=== PATIENT | male | born 1970 ===

== ENCOUNTER 2017-06-27 13:22 | Inpatient (IN) | payer MEDICAID, OTHER ==
--- NOTE | 2017-06-27 13:55 | ED PDOC ---
Arrival/HPI - General Chief Complaint: Alcohol Ingestion Time Seen by Provider: 06/27/17 13:30 Historian: Patient - History of Present Illness Narrative History of Present Illness (Text): 06/27/17 1359 pt p/w + severe jitteriness/palpitations/uneasy feeling, general unwell feeling today; pt last drink of alcohol was 6pm last night; pt is trying to stop drinking alcohol on his own; pt was drinking daily at least 6-8 of 24Oz beers; pt states no fever/chills/sweats, no cp/sob, no abd pain, + nausea, no vomiting ; no urinary/bowel changes, no rashes, no vision changes, + throbbing headache; no fall/trauma/sick contact, no travel; pt states no suicidal/homicidal ideations; pt denied hallucinations - visual/tactile/auditory; pt arrived to ED for further eval/mgt/txt; pt's without other complaints PCP: NONE Time/Duration: 24 hours Symptom Onset: Sudden Symptom Course: Worsening Quality: Throbbing Severity Level: Severe Activities at Onset: Rest Context: Home Past Medical History - Provider Review Nursing Documentation Reviewed: Yes - Travel History Have you recently traveled outside [place] w/in the past 3 mons?: No - Past History Past History: No Previous - Infectious Disease Hx of Infectious Diseases: None - Tetanus Immunization Tetanus Immunization: Unknown - Reproductive Currently Lactating: No Family/Social History - Physician Review Nursing Documentation Reviewed: Yes Family/Social History: No Known Family HX Smoking Status: Never Smoked Hx Alcohol Use: Yes (heavy user, drinks 6-8 24oz beer daily for years) Hx Substance Use: No Hx Substance Use Treatment: No Allergies/Home Meds Allergies/Adverse Reactions: Allergies No Known Allergies Allergy (Verified 06/27/17 13:54) Home Medications: Home Meds Medication Instructions Recorded Confirmed No Known Home Med 06/27/17 06/27/17 Review of Systems - Review of Systems Constitutional: Fatigue. absent: Weight Change Eyes: Normal ENT: Normal Respiratory: Normal Cardiovascular: Palpitations Gastrointestinal: Normal Genitourinary Male: Normal Musculoskeletal: Normal Skin: Normal Neurological: Headache, Dizziness Endocrine: Normal Hemo/Lymphatic: Normal Psychiatric: Anxiety. absent: Suicidal Ideation Physical Exam Vital Signs Reviewed: Yes Vital Signs Temp Pulse Resp BP Pulse Ox 06/27/17 15:29 78 18 126/85 95 06/27/17 13:42 98.2 F 91 H 22 157/101 H 100 Temperature: Afebrile Blood Pressure: Hypertensive Pulse: Regular Respiratory Rate: Normal Appearance: Positive for: Well-Appearing, Uncomfortable, Other (uncomfortable, noted resting tremors, mild distress due to jitters; alert/awake, cooperative, resting in bed; GCS = 15, oriented x 3) Pain Distress: Mild Mental Status: Positive for: Alert and Oriented X 3 - Systems Exam Head: Present: Atraumatic, Normocephalic Pupils: Present: PERRL, Other (no nystagmus, no photophobia, sclera anicteric) Extroacular Muscles: Present: EOMI Conjunctiva: Present: Normal Ears: Present: Normal Mouth: Present: Dry, Normal Teeth, Other (uvula/tongue are midline, no exudate/ lesions, no drooling, moderate dry oral mucosa) Pharnyx: Present: Normal Nose (External): Present: Atraumatic Nose (Internal): Present: Normal Inspection Neck: Present: Normal Range of Motion, Trachea Midline, Other (no midline tenderness, no step off, intact ROM; no gross deformities noted). No: MIDLINE TENDERNESS Respiratory/Chest: Present: Clear to Auscultation, Good Air Exchange, Other ( CTA b/l, no w/r/r) Cardiovascular: Present: Regular Rate and Rhythm, Normal S1, S2. No: Murmurs Abdomen: Present: Normal Bowel Sounds, Other (well nourished male, no focal tenderness, no masses/rebound/guarding/rigidity, no michel's sign, no mcburney' s point tenderness) Back: Present: Normal Inspection. No: CVA Tenderness, Midline Tenderness Upper Extremity: Present: Normal Inspection, Normal ROM, NORMAL PULSES, Neurovascularly Intact. No: Edema, Deformity Lower Extremity: Present: Normal Inspection, NORMAL PULSES, Normal ROM, Neurovascularly Intact, Other (+ambulatory, neurovasc intact b/l, strength 5/5 grossly intact in all limbs) Neurological: Present: GCS=15, CN II-XII Intact, Speech Normal, Other (+ mild resting tremors noted, alert/awake, GCS = 15, no facial asymmetries, no slurr speech) Skin: Present: Warm, Dry, Normal Color, Other (cap refill ~ 1sec, no ulcerations , no petechiae) Psychiatric: Present: Alert, Oriented x 3. No: Hallucinations Medical Decision Making ED Course and Treatment: 06/27/17 13:59 Impression: alcohol w/d i have consider all the differential diagnosis regarding pt's chief medical complaints/clinical findings, including but are not limited to: alcohol w/d, palpitations A/P: alcohol w/d - labs - iv - xray - ekg - observe - supportive care 06/27/17 14:[address] Davis, hospitalists deputy commissioner, made aware, agrees with admission pt is currently feeling slightly improved pt is made aware of his medical results agrees with admission 1600 pt denied chest pain pt is currently comfortable and calm pt denied SI/HI, no hallucinations Re-evaluation Time: 15:22 Reassessment Condition: Improving,but remains with symptoms - Critical Care Critical Care Minutes: 30 minutes Critical Care Time: Excluding Proc Time Narrative Critical Care (Text): 06/27/17 17:03 critical care time: 30min, excluding procedure time, excluding time teaching residents/students/mid-level providers; including initial eval/diagnosis, diagnostic interpretation, re-eval, consultations, final disposition - Lab Interpretations Lab Results: 06/27/17 14:04 06/27/17 14:04 Lab Results 06/27/17 14:09: pO2 69 H, VBG pH 7.41, VBG pCO2 39.0 L, VBG HCO3 24.7, VBG Total CO2 25.9, VBG O2 Sat (Calc) 96.2 H, VBG Base Excess 0.1, VBG Potassium 3.4 L, Glucose 297 H, Lactate 3.1 H, FiO2 21.0, Sodium 134.0, Chloride 98.0, Venous Blood Potassium 3.4 L 06/27/17 14:04: Serum Osmolality Pending, Alcohol, Quantitative < 10 06/27/17 14:04: Salicylates < 1 L, Acetaminophen < 10.0 L 06/27/17 14:04: Urine Opiates Screen Negative, Urine Methadone Screen Negative, Ur Barbiturates Screen Negative, Ur Phencyclidine Scrn Negative, Ur Amphetamines Screen Negative, U Benzodiazepines Scrn Negative, U Oth Cocaine Metabols Negative, U Cannabinoids Screen Negative 06/27/17 14:04: Sodium 138, Potassium 3.5 L, Chloride 94 L, Carbon Dioxide 22, Anion Gap 25 H, BUN 10, Creatinine 0.5 L, Est GFR ( Amer) > 60, Est GFR ( Non-Af Amer) > 60, Random Glucose 299 H, Calcium 10.6 H, Total Bilirubin 1.5 H, AST 116 H, ALT 117 H, Alkaline Phosphatase 168 H, Total Protein 8.4 H, Albumin 5.0 H, Globulin 3.4, Albumin/Globulin Ratio 1.5 06/27/17 14:04: Urine Color Yellow, Urine Appearance Clear, Urine pH 6.0, Ur Specific [place] 1.020, Urine Protein Trace H, Urine Glucose (UA) Negative, Urine Ketones >=80, Urine Blood Negative, Urine Nitrate Negative, Urine Bilirubin Negative, Urine Urobilinogen 1.0 H, Ur Leukocyte Esterase Negative, Urine RBC 0 - 2, Urine WBC 0 - 2, Ur Epithelial Cells 1 - 3, Urine Bacteria Few 06/27/17 14:04: WBC 4.4 L, RBC 4.72, Hgb 16.0, Hct 43.0, MCV 91.1, MCH 33.9, MCHC 37.2 H, RDW 11.7, Plt Count 96 L, MPV 12.3 H, Gran % 72.1 H, Lymph % (Auto ) 16.2 L, [place] % (Auto) 11.0 H, Eos % (Auto) 0.2 L, Baso % (Auto) 0.5, Gran # 3.20, Lymph # (Auto) 0.7 L, [place] # (Auto) 0.5, Eos # (Auto) 0.0, Baso # (Auto) 0.02 06/27/17 13:50: POC Glucose (mg/dL) 250 H I have reviewed the lab results: Yes Interpretation: Abnormal lab values (elevated LFTs, elevated GLUC, elevated LACTATE) - RAD Interpretation Narrative RAD Interpretations (Text): 06/27/17 14:39 Chest X-ray- Creator : Pipo Burnette MD Dictator : Pipo Burnette MD FINDINGS: LUNGS: No active pulmonary disease. PLEURA: No significant pleural effusion identified, no pneumothorax apparent. CARDIOVASCULAR: Normal. OSSEOUS STRUCTURES: No significant abnormalities. VISUALIZED UPPER ABDOMEN: Normal. IMPRESSION: No active disease. Radiology Orders: 06/27/17 13:57 CHEST PORTABLE [RAD] Stat Sampler Radioactive Waste: Radiologist - EKG Interpretation EKG Interpretation (Text): 06/27/17 14:00 NSR at 80 bpm, LAD, no ectopy, inverted T in leads III, no st changes, min voltage criteria LVH, ABNL EKG; no old ekg to compare with Interpreted by ED Physician: Yes Type: 12 lead EKG Comparison: No previous EKG avail. - Medication Orders Current Medication Orders: Multivitamins/Vitamin C 10 ml/Thiamine HCl 100 mg/ Folic Acid 1 mg/ Sodium Chloride 1,011.2 mls @ 100 mls/hr IV ONCE ONE Stop: 06/28/17 00:03 Last Admin: 06/27/17 15:24 Dose: 100 mls/hr eMAR Start Stop Document 06/27/17 15:24 OCS (Rec: 06/27/17 15:25 OCS [id number]) Intravenous Solution Start Date 06/27/17 Start Time 15:25 Multivitamins/Vitamin C 10 ml/Thiamine HCl 100 mg/ Folic Acid 1 mg/ Sodium Chloride 1,011.2 mls @ 150 mls/hr IV .Q6H45M ONE Stop: 06/28/17 06:48 Insulin Human Regular (Humulin R Low) 0 units SC ACHS SHIVANI PRN Reason: Protocol Lorazepam (Ativan) 1 mg IVP Q6H SHIVANI PRN Reason: Protocol Last Admin: 06/27/17 15:44 Dose: 1 mg IVP Administration Document 06/27/17 15:44 OCS (Rec: 06/27/17 15:44 OCS [id number]) Charges for Administration # of IVP Administrations 1 Lorazepam (Ativan) 2 mg IVP Q4H PRN; Protocol PRN Reason: Symptoms of alcohol withdrawl Pantoprazole Sodium (Protonix Ec Tab) 40 mg PO 0600 SHIVANI Discontinued Medications Lorazepam (Ativan) 2 mg IVP STAT STA Stop: 06/27/17 13:58 Last Admin: 06/27/17 14:11 Dose: 2 mg IVP Administration Document 06/27/17 14:11 OCS (Rec: 06/27/17 14:11 OCS [id number]) Charges for Administration # of IVP Administrations 1 Disposition/Present on Arrival - Present on Arrival Any Indicators Present on Arrival: No History of DVT/PE: No History of Uncontrolled Diabetes: No Urinary Catheter: No History of Decub. Ulcer: No History Surgical Site Infection Following: None - Disposition Have Diagnosis and Disposition been Completed?: Yes Diagnosis: Alcohol withdrawal, Alcohol dependence, Dehydration Disposition: HOSPITALIZED Disposition Time: 15:22 Patient Plan: Admission, Telemetry Patient Problems: Current Active Problems Problem Status Onset Alcohol withdrawal Acute Alcohol dependence Acute Dehydration Acute Condition: STABLE
[2017-06-27] MEDS ORDERED: Multivitamin (MVI) 10 ML, Thiamine 100 MG, Folic Acid 1 MG in Sodium Chloride 0.9% 1,00... IV ONE (13:57)
[2017-06-27 14:20] LABS: BASO # 0.02 K/mm3 (0.0-2.0); BASO % 0.5 % (0.0-3.0); EOS % 0.2 % (1.5-5.0); GRAN # 3.2 (1.4-6.5); GRAN % 72.1 % (50.0-68.0); LYMPH # 0.7 (1.2-3.4); LYMPH % 16.2 % (22.0-35.0); MEAN CELL VOLUME 91.1 fl (80.0-105.0); MEAN CORPUSCULAR HEMOGLOBIN 33.9 pg (25.0-35.0); MEAN CORPUSCULAR HGB CONC 37.2 g/dl (31.0-37.0); MEAN PLATELET VOLUME 12.3 fl (7.0-11.0); MONO # 0.5 (0.1-0.6); RBC 4.72 10^6/uL (3.5-6.1); RED CELL DISTRIBUTION WIDTH 11.7 % (11.5-14.5); WHITE BLOOD COUNT 4.4 10^3/ul (4.5-11.0)
[2017-06-27 14:21] LABS: URINE BILIRUBIN NEGATIVE (NEGATIVE); URINE BLOOD NEGATIVE (NEGATIVE); URINE GLUCOSE (UA) NEGATIVE (NEGATIVE); URINE LEUKOCYTE ESTERASE NEGATIVE Leu/uL (NEGATIVE); URINE PROTEIN TRACE mg/dL (<30 mg/dL)
[2017-06-27 14:23] LABS: URINE APPEARANCE CLEAR (CLEAR); URINE COLOR YELLOW (YELLOW)
[2017-06-27 14:24] LABS: VENOUS BLOOD GAS BASE EXCESS 0.1 mmol/L (0.0-2.0); VENOUS BLOOD GAS PO2 69 mm/Hg (30-55); VENOUS BLOOD PH 7.41 (7.32-7.43)
[2017-06-27 14:27] LABS: URINE RBC 0 - 2 /hpf (0-2)
[2017-06-27 14:28] LABS: URINE BACTERIA FEW (NEG); URINE WBC 0 - 2 /hpf (0-6)
[2017-06-27 14:34] LABS: ACETAMINOPHEN < 10.0 ug/ml (10.0-20.0); ALB/GLOB RATIO 1.5 (1.1-1.8); ALT/SGPT 117 U/L (7-56); AST/SGOT 116 U/L (17-59); BLOOD UREA NITROGEN 10 mg/dL (7-21); CALCIUM 10.6 mg/dL (8.4-10.5); GFR AFRICAN-AMERICAN > 60; GFR NON-AFRICAN AMERICAN > 60; SALICYLATE < 1 mg/dL (2.0-20.0)
--- NOTE | 2017-06-27 14:37 | RAD ---
HISTORY: alcohol w/d COMPARISON: No prior. FINDINGS: LUNGS: No active pulmonary disease. PLEURA: No significant pleural effusion identified, no pneumothorax apparent. CARDIOVASCULAR: Normal. OSSEOUS STRUCTURES: No significant abnormalities. VISUALIZED UPPER ABDOMEN: Normal. OTHER FINDINGS: None. IMPRESSION: No active disease.
[2017-06-27 14:43] LABS: BARBITURATES, UR NEGATIVE (NEGATIVE); BENZODIAZEPINES, UR NEGATIVE (NEGATIVE); OPIATES, UR NEGATIVE (NEGATIVE); PHENCYCLIDINE, UR NEGATIVE (NEGATIVE)
--- NOTE | 2017-06-27 15:17 | CP.PCM.HP ---
<Parul Castano - Last Filed: 06/27/17 16:03> History of Present Illness - History of Present Illness History of Present Illness: CC: I was shaking and my heart was beating funny Patient is a 47 y/o with pmh of anxiety and depression who presented with tachycardia, and feeling shaky. Patient states he has been drinking for 8 months to a year straight, last drink was yesterday at 6 pm, he consumed 8 x 24 oz can of beer. Patient didn't have any alcohol beverage today due to the fact that he has an interview this morning. While at the interview, he started to experience funny sensation in the chest, heart was beating fast, then slow, he felt shaky, was not able to hold the pen, and felt sweaty, thus he decided to come to the ED. States he walked into the ED by himself. Denies nausea, vomiting or diarrhea. No cp or sob. No fever, chills, no cough. Aniceto dysurea, and no abdominal pain. Patient states he was diagnosed with anxiety, was taking Xanax prescribed Dr Dr Miranda 4 years ago, discontinued it due to lack of money. Currently unemployed. PMHx: Alcohol dependency, anxiety and depression PSHx: denies FMHx: brother and sister with htn and DM Social: denies tobacco or illicit drug use. Admits to drinking 4x24 oz of beer everyday for the past 8 months to a year. Used to drink alcohol intermittently before that, tried to quit once, and was sober for 6 months. Lives with his brother. Allergy: nkda Home meds: none Present on Admission - Present on Admission Any Indicators Present on Admission: No History of DVT/PE: No History of Uncontrolled Diabetes: No Urinary Catheter: No Decubitus Ulcer Present: No Review of Systems - Review of Systems All systems: reviewed and no additional remarkable complaints except Review of Systems: All negative except as per HPI. Past Patient History - Infectious Disease Hx of Infectious Diseases: None - Tetanus Immunizations Tetanus Immunization: Unknown - Past Medical History & Family History Past Medical History?: Yes - Past Social History Smoking Status: Never Smoked Alcohol: None Drugs: Denies Home Situation {Lives}: With Family - CARDIAC Hx Cardiac Disorders: No - PULMONARY Hx Respiratory Disorders: No - NEUROLOGICAL Hx Neurological Disorder: No - HEENT Hx HEENT Problems: No - RENAL Hx Chronic Kidney Disease: No - ENDOCRINE/METABOLIC Hx Endocrine Disorders: No - HEMATOLOGICAL/ONCOLOGICAL Hx Blood Disorders: No - INTEGUMENTARY Hx Dermatological Problems: No - MUSCULOSKELETAL/RHEUMATOLOGICAL Hx Musculoskeletal Disorders: No - GASTROINTESTINAL Hx Gastrointestinal Disorders: No - GENITOURINARY/GYNECOLOGICAL Hx Genitourinary Disorders: No - PSYCHIATRIC Hx Psychophysiologic Disorder: Yes Hx Anxiety: Yes Hx Depression: Yes Hx Substance Use: No - SURGICAL HISTORY Hx Surgeries: No - ANESTHESIA Hx Anesthesia: Yes Meds Allergies/Adverse Reactions: Allergies Allergy/AdvReac Type Severity Reaction Status Date / Time No Known Allergies Allergy Verified 06/27/17 13:54 Physical Exam - Constitutional Appears: No Acute Distress, Older Than Stated Age - Head Exam Head Exam: ATRAUMATIC, NORMAL INSPECTION, NORMOCEPHALIC - Eye Exam Eye Exam: EOMI, Normal appearance, PERRL. absent: Scleral icterus Pupil Exam: NORMAL ACCOMODATION - ENT Exam ENT Exam: Mucous Membranes Dry - Neck Exam Neck exam: Positive for: Normal Inspection - Respiratory Exam Respiratory Exam: Clear to Auscultation Bilateral, NORMAL BREATHING PATTERN. absent: Rales, Rhonchi, Wheezes, Respiratory Distress, Stridor - Cardiovascular Exam Cardiovascular Exam: REGULAR RHYTHM, RRR, +S1, +S2. absent: Gallop, JVD, Rubs, Systolic Murmur - GI/Abdominal Exam GI & Abdominal Exam: Normal Bowel Sounds, Soft. absent: Distended, Guarding, Pulsatile Mass, Rebound, Rigid, Tenderness - Extremities Exam Extremities exam: Positive for: normal inspection. Negative for: pedal edema - Back Exam Back exam: NORMAL INSPECTION - Neurological Exam Neurological exam: Alert, Oriented x3 Additional comments: No focal deficit, cranial nerves intact. + intention tremors of the extremities. - Psychiatric Exam Psychiatric exam: Normal Affect, Normal Mood - Skin Skin Exam: Dry, Intact, Normal Color, Warm Results - Vital Signs Recent Vital Signs: Last Vital Signs Temp 98.2 F 06/27/17 13:42 Pulse 91 H 06/27/17 13:42 Resp 22 06/27/17 13:42 BP 157/101 H 06/27/17 13:42 Pulse Ox 100 06/27/17 13:42 - Labs Result Diagrams: 06/27/17 14:04 06/27/17 14:04 - EKG Data EKG Interpreted by: Myself EKG shows normal: Sinus rhythm Rate: Tachycardia (LVH criteria.) Assessment & Plan - Assessment and Plan (Free Text) Assessment: Patient is a 47 y/o with pmhx of alcohol dependency, anxiety and depression who presented with tachycardia, and feeling shaky and is now being admitted with alcohol withdrawal, and metabolic derangements due to the ladder. Plan: 1) Alcohol withdrawal - Etoh level <10 - [facility] protocol - Ativan 1 q6hr standing and 2 mq q4 prn - fall precaution - banana bag @100 ml/hr - Alcohol cessation counseling 2) Thrombocytopenia- likely due to alcohol - plt 96 - no signs of bleeding, will monitor for now 3) Anion gap metabolic acidosis with elevated lactic acid likely due to alcohol - Gap of 22 - less likely sepsis ( no fever, no wbc) - will send cultures and monitor off of antibiotics, will consider abx if clinical status changes. 4) Hypokalemia- will replete, will add mag and phos 5) Hyperglycemia- r/o DM - will obtain hgba1 - Insulin sliding scale and fingerstick achs. 6) Mildly elevated calcium- will hydrate 7) Transaminitis- likely due to alcohol dependency - r/o viral hepatitis - will check hep panel - will consider abdominal u/s 8) Transiently elevated BP- will monitor for now 9) h/o anxiety and depression- psych consulted. 10) DVT prophylaxis: mechanical compressive devices 11) GI prophylaxis: protonix po. Patient seen, examined and case discussed with Dr Sherrill Daley. - Date & Time Date: 06/27/17 Time: 15:05 <Chava Daley - Last Filed: 06/28/17 17:00> Results - Vital Signs Recent Vital Signs: Last Vital Signs Temp 98.2 F 06/27/17 13:42 Pulse 66 06/28/17 05:28 Resp 18 06/27/17 22:48 BP 126/85 06/27/17 15:29 Pulse Ox 95 06/27/17 15:29 - Labs Result Diagrams: 06/28/17 06:00 06/28/17 06:00 Labs: Laboratory Results - last 24 hr 06/27/17 06/27/17 06/27/17 20:15 20:15 20:15 WBC RBC Hgb Hct MCV MCH MCHC RDW Plt Count MPV Gran % Lymph % (Auto) [place] % (Auto) Eos % (Auto) Baso % (Auto) Gran # Lymph # (Auto) [place] # (Auto) Eos # (Auto) Baso # (Auto) pO2 25 L VBG pH 7.42 VBG pCO2 45.0 VBG HCO3 29.2 H VBG Total CO2 30.6 H VBG O2 Sat (Calc) 72.8 H VBG Base Excess 4.0 H VBG Potassium 3.6 Sodium 135.0 Chloride 96.0 L Glucose 301 H Lactate 1.6 FiO2 21.0 Potassium Carbon Dioxide Anion Gap BUN Creatinine Est GFR ( Amer) Est GFR (Non-Af Amer) POC Glucose (mg/dL) Random Glucose Hemoglobin A1c 10.3 H Calcium Phosphorus Magnesium Total Bilirubin AST ALT Alkaline Phosphatase Total Protein Albumin Globulin Albumin/Globulin Ratio Venous Blood Potassium 3.6 Hepatitis A IgM Ab Negative Hep Bs Antigen Negative Hep B Core IgM Ab Negative Hepatitis C Antibody Negative 06/27/17 06/28/17 06/28/17 21:19 06:00 06:00 WBC 4.2 L RBC 4.40 Hgb 14.8 Hct 40.8 L MCV 92.7 MCH 33.6 MCHC 36.3 RDW 11.8 Plt Count 91 L MPV 12.2 H Gran % 48.8 L Lymph % (Auto) 36.3 H [place] % (Auto) 13.0 H Eos % (Auto) 1.4 L Baso % (Auto) 0.5 Gran # 2.03 Lymph # (Auto) 1.5 [place] # (Auto) 0.5 Eos # (Auto) 0.1 Baso # (Auto) 0.02 pO2 VBG pH VBG pCO2 VBG HCO3 VBG Total CO2 VBG O2 Sat (Calc) VBG Base Excess VBG Potassium Sodium 136 Chloride 100 Glucose Lactate FiO2 Potassium 4.3 Carbon Dioxide 29 Anion Gap 11 BUN 13 Creatinine 0.7 L Est GFR ( Amer) > 60 Est GFR (Non-Af Amer) > 60 POC Glucose (mg/dL) 213 H Random Glucose 231 H Hemoglobin A1c Calcium 9.7 Phosphorus 3.6 Magnesium 2.0 Total Bilirubin 1.2 AST 67 H D ALT 85 H Alkaline Phosphatase 106 Total Protein 6.7 Albumin 3.9 Globulin 2.8 Albumin/Globulin Ratio 1.4 Venous Blood Potassium Hepatitis A IgM Ab Hep Bs Antigen Hep B Core IgM Ab Hepatitis C Antibody 06/28/17 06/28/17 06/28/17 07:45 11:14 15:32 WBC RBC Hgb Hct MCV MCH MCHC RDW Plt Count MPV Gran % Lymph % (Auto) [place] % (Auto) Eos % (Auto) Baso % (Auto) Gran # Lymph # (Auto) [place] # (Auto) Eos # (Auto) Baso # (Auto) pO2 VBG pH VBG pCO2 VBG HCO3 VBG Total CO2 VBG O2 Sat (Calc) VBG Base Excess VBG Potassium Sodium Chloride Glucose Lactate FiO2 Potassium Carbon Dioxide Anion Gap BUN Creatinine Est GFR ( Amer) Est GFR (Non-Af Amer) POC Glucose (mg/dL) 207 H 297 H 189 H Random Glucose Hemoglobin A1c Calcium Phosphorus Magnesium Total Bilirubin AST ALT Alkaline Phosphatase Total Protein Albumin Globulin Albumin/Globulin Ratio Venous Blood Potassium Hepatitis A IgM Ab Hep Bs Antigen Hep B Core IgM Ab Hepatitis C Antibody Attending/Attestation - Attestation I have personally seen and examined this patient.: Yes I have fully participated in the care of the patient.: Yes I have reviewed all pertinent clinical information: Yes Notes (Text): I have seen and examined the patient at bedside. Agree with the above note with the following additions/ exceptions: Briefly this is 47 year old male with history of alcohol abuse, anxiety and depression who came for evaluation of tachycardia, shakiness, anxiety, diaphoresis and found to have alcohol withdrawal syndrome. Patient had an interview today and he decided not to drink at all which is very unusual for him. Alcohol level is <10. Will start banana bag, thiamine and ativan. He also has AGMA which can be due to LA vs alcohol. Will do blood culture, UA and procal. Counselling provided regarding alcohol use. He has thrombocytopenia which is most likely due to alcohol induced BM suppression. Will check HBA1C as he is hyperglycemic. Will consult psych for anxiety management. Patient reports that he cannot work as he feels very anxious around people. Upon discharge patient will follow up in [facility] clinic. Dr Chava Daley
--- NOTE | 2017-06-27 17:11 | US ---
HISTORY: Liver and gallbladder COMPARISON: None. TECHNIQUE: Sonographic evaluation of the abdomen. FINDINGS: LIVER: Measures 14.4 cm. Hepatopedal blood flow. Fatty infiltration manifest ultrasonographically as increased echogenicity of the liver parenchyma. No mass. No intrahepatic bile duct dilatation. GALLBLADDER: Unremarkable. No gallstones. COMMON BILE DUCT: Measures 3.9 mm. No stones. No dilatation. PANCREAS: Obscured by overlying bowel gas. Non diagnostic assessment of the pancreas RIGHT KIDNEY: Measures 5.5 x 11.4cm. Normal echogenicity. No calculus, mass, or hydronephrosis. LEFT KIDNEY: Measures 5.6 x 12.1cm. Normal echogenicity. No calculus, mass, or hydronephrosis. SPLEEN: Normal in size and contour. No mass. AORTA: Obscured by overlying bowel gas. Non diagnostic assessment of abdominal aorta. IVC: Obscured by overlying bowel gas. Non diagnostic assessment of inferior vena cava. OTHER FINDINGS: None. IMPRESSION: No acute findings related to/accounting for the clinical presentation. Limitations of the current examination: Nondiagnostic assessment of pancreas, IVC and aorta.
[2017-06-27] MEDS ORDERED: Insulin Regular 1 UNITS/0.01 ML ML ONE (18:36)
[2017-06-27] MEDS: Insulin Reg-LOW-Coverage SC SCH ×2 (18:36→21:48)
--- NOTE | 2017-06-27 20:18 | CARD ---
APPROVED REPORT EKG Measurement Heart [id number] <Conclusion> Normal sinus rhythm Minimal voltage criteria for LVH, may be normal variant Borderline ECG
[2017-06-27 20:29] LABS: VENOUS BLOOD GAS PO2 25 mm/Hg (30-55); VENOUS BLOOD PH 7.42 (7.32-7.43)
[2017-06-27 22:57] VITALS: BMI 27.4
[2017-06-28] MEDS ORDERED: Multivitamin (MVI) 10 ML, Thiamine 100 MG, Folic Acid 1 MG in Sodium Chloride 0.9% 1,00... IV ONE (00:04)
[2017-06-28] MEDS: Pantoprazole 40 mg EC Tab PO SCH (05:48)
--- NOTE | 2017-06-28 06:22 | CP.PCM.PN ---
Subjective - Date & Time of Evaluation Date of Evaluation: 06/28/17 Time of Evaluation: 06:20 - Subjective Subjective: I was asked to sign an order by nurse for 0.5 mg of ativan IV for this patient. Actually I had ordered Ativan 0.5 mg IV for patient in 363-,Brett Mclean. Objective - Vital Signs/Intake and Output Vital Signs (last 24 hours): Temp Pulse Resp BP Pulse Ox 98.2 F 66 18 126/85 95 06/27/17 13:42 06/28/17 05:28 06/27/17 22:48 06/27/17 15:29 06/27/17 15:29 - Medications Medications: Current Medications Multivitamins/Vitamin C 10 ml/Thiamine HCl 100 mg/ Folic Acid 1 mg/ Sodium Chloride 1,011.2 mls @ 150 mls/hr IV .Q6H45M ONE Stop: 06/28/17 06:48 Last Admin: 06/28/17 03:23 Dose: 150 mls/hr Insulin Human Regular (Humulin R Low) 0 units SC ACHS SHIVANI PRN Reason: Protocol Last Admin: 06/27/17 21:48 Dose: Not Given Lorazepam (Ativan) 1 mg IVP Q6H SHIVANI PRN Reason: Protocol Last Admin: 06/28/17 03:18 Dose: 1 mg Lorazepam (Ativan) 2 mg IVP Q4H PRN; Protocol PRN Reason: Symptoms of alcohol withdrawl Pantoprazole Sodium (Protonix Ec Tab) 40 mg PO 0600 [facility] Last Admin: 06/28/17 05:48 Dose: 40 mg
[2017-06-28 06:36] LABS: BASO # 0.02 K/mm3 (0.0-2.0); BASO % 0.5 % (0.0-3.0); EOS # 0.1 (0.0-0.7); EOS % 1.4 % (1.5-5.0); GRAN # 2.03 (1.4-6.5); GRAN % 48.8 % (50.0-68.0); HEMOGLOBIN 14.8 g/dL (14.0-18.0); LYMPH # 1.5 (1.2-3.4); LYMPH % 36.3 % (22.0-35.0); MEAN CELL VOLUME 92.7 fl (80.0-105.0); MEAN CORPUSCULAR HEMOGLOBIN 33.6 pg (25.0-35.0); MEAN CORPUSCULAR HGB CONC 36.3 g/dl (31.0-37.0); MEAN PLATELET VOLUME 12.2 fl (7.0-11.0); MONO # 0.5 (0.1-0.6); RBC 4.4 10^6/uL (3.5-6.1); RED CELL DISTRIBUTION WIDTH 11.8 % (11.5-14.5); WHITE BLOOD COUNT 4.2 10^3/ul (4.5-11.0)
[2017-06-28 07:17] LABS: ALB/GLOB RATIO 1.4 (1.1-1.8); ALBUMIN 3.9 g/dL (3.0-4.8); ALT/SGPT 85 U/L (7-56); AST/SGOT 67 U/L (17-59); BLOOD UREA NITROGEN 13 mg/dL (7-21); CALCIUM 9.7 mg/dL (8.4-10.5); GFR AFRICAN-AMERICAN > 60; GFR NON-AFRICAN AMERICAN > 60
[2017-06-28] MEDS: Insulin Reg-LOW-Coverage SC SCH ×2 (10:38→10:43)
[2017-06-28 11:38] LABS: HEPATITIS B SURFACE AG Negative (NEGATIVE)
[2017-06-28 11:44] LABS: HEPATITIS A IGM NEGATIVE (NEGATIVE); HEPATITIS B CORE AB NEGATIVE (NEGATIVE)
[2017-06-28 11:56] LABS: HEPATITIS C ANTIBODY NEGATIVE (NEGATIVE)
[2017-06-28] MEDS: Insulin Reg-HIGH-Coverage SC SCH ×3 (12:29→21:35)
--- NOTE | 2017-06-28 14:14 | CP.PCM.PCO ---
Addendum Addendum: 06/28/17 14:13 initially pt was willing to sign into the psych unit, but when RN tried to sign consent pt refused pt is not suicidal or homicidal, but might benefit from psych admission will f/u with him on med side discussed with
--- NOTE | 2017-06-28 16:13 | CP.PCM.PN ---
<ClaraRylan - Last Filed: 06/28/17 16:06> Subjective - Date & Time of Evaluation Date of Evaluation: 06/28/17 Time of Evaluation: 16:06 - Subjective Subjective: Medicine progress note: Dr. Laura Daley Patient seen and examined at bedside. Patient states he is feeling much better. Patient denies any agitation or headaches. Patient denies any shakiness or dizziness. One dose of ativan was given to patient overnight, but patient did not request the medication. He states he is feeling much better and is tolerating his moderate CHO diet. Objective - Vital Signs/Intake and Output Vital Signs (last 24 hours): Temp Pulse Resp BP Pulse Ox 98.2 F 66 18 126/85 95 06/27/17 13:42 06/28/17 05:28 06/27/17 22:48 06/27/17 15:29 06/27/17 15:29 Intake and Output: 06/28/17 06/28/17 06:59 18:59 Intake Total 0 Balance 0 - Medications Medications: Current Medications Folic Acid (Folic Acid) 1 mg PO DAILY [facility] Last Admin: 06/28/17 10:38 Dose: 1 mg Insulin Human Regular (Humulin R High) 0 units SC ACHS [facility] PRN Reason: Protocol Last Admin: 06/28/17 12:29 Dose: 7 units Lorazepam (Ativan) 1 mg IVP Q6H [facility] PRN Reason: Protocol Last Admin: 06/28/17 10:37 Dose: 1 mg Lorazepam (Ativan) 2 mg IVP Q4H PRN; Protocol PRN Reason: Symptoms of alcohol withdrawl Multivitamins (Thera Tab) 1 tab PO 0800 [facility] Pantoprazole Sodium (Protonix Ec Tab) 40 mg PO 0600 [facility] Last Admin: 06/28/17 05:48 Dose: 40 mg Paroxetine HCl (Paxil) 10 mg PO HS [facility] Thiamine HCl (Vitamin B1 Tab) 100 mg PO DAILY [facility] Last Admin: 06/28/17 10:38 Dose: 100 mg - Labs Labs: 06/28/17 06:00 06/28/17 06:00 - Constitutional Appears: Well - Head Exam Head Exam: ATRAUMATIC, NORMAL INSPECTION, NORMOCEPHALIC - Eye Exam Eye Exam: EOMI, Normal appearance, PERRL Pupil Exam: NORMAL ACCOMODATION, PERRL - ENT Exam ENT Exam: Mucous Membranes Moist, Normal Exam - Neck Exam Neck Exam: Full ROM, Normal Inspection. absent: Lymphadenopathy - Respiratory Exam Respiratory Exam: Clear to Ausculation Bilateral, NORMAL BREATHING PATTERN - Cardiovascular Exam Cardiovascular Exam: REGULAR RHYTHM, +S1, +S2. absent: Murmur - GI/Abdominal Exam GI & Abdominal Exam: Soft, Normal Bowel Sounds. absent: Tenderness - Extremities Exam Extremities Exam: Full ROM, Normal Capillary Refill, Normal Inspection. absent : Joint Swelling, Pedal Edema - Back Exam Back Exam: NORMAL INSPECTION - Neurological Exam Neurological Exam: Alert, Awake, CN II-XII Intact, Normal Gait, Oriented x3 - Psychiatric Exam Psychiatric exam: Normal Affect, Normal Mood - Skin Skin Exam: Dry, Intact, Normal Color, Warm Assessment and Plan - Assessment and Plan (Free Text) Assessment: Patient is a 47 y/o with pmhx of alcohol dependency, anxiety and depression who presented with tachycardia, and feeling shaky and is now being admitted with alcohol withdrawal, and metabolic derangements due to the latter. Alcohol withdrawal - Resolving - Etoh level <10 - CIWA protocol - Ativan 1 q6hr standing and 2 mq q4 prn - Banana bag @100 ml/hr - Alcohol cessation counseling - Seizure precautions, fall precautions, neurochecks Thrombocytopenia- likely due to alcohol - Plt 96 - No signs of bleeding, will monitor for now Hypokalemia- resolved - Mag and phos within normal limits Diabetes - Hgba1c: 10.8 - Insulin sliding scale high and fingerstick achs Spoke to patient about shelter treatment and management - Diabetic nutrition counseling Mildly elevated calcium - will hydrate Transaminitis- likely due to alcohol dependency - downtrending - Hep panel: negative - Abdominal u/s: negative Transiently elevated BP - Resolved - Likely elevated due to withdrawal h/o anxiety and depression- psych consulted - Patient refused inpatient admission DVT prophylaxis: mechanical compressive devices GI prophylaxis: protonix po. <Chava Daley - Last Filed: 06/28/17 17:25> Objective - Vital Signs/Intake and Output Vital Signs (last 24 hours): Temp Pulse Resp BP Pulse Ox 98.2 F 66 18 126/85 95 06/27/17 13:42 06/28/17 05:28 06/27/17 22:48 06/27/17 15:29 06/27/17 15:29 Intake and Output: 06/28/17 06/28/17 06:59 18:59 Intake Total 0 Balance 0 - Medications Medications: Current Medications Folic Acid (Folic Acid) 1 mg PO DAILY [facility] Last Admin: 06/28/17 10:38 Dose: 1 mg Insulin Human Regular (Humulin R High) 0 units SC ACHS SHIV[facility] PRN Reason: Protocol Last Admin: 06/28/17 12:29 Dose: 7 units Lorazepam (Ativan) 1 mg IVP Q6H [facility] PRN Reason: Protocol Last Admin: 06/28/17 10:37 Dose: 1 mg Lorazepam (Ativan) 2 mg IVP Q4H PRN; Protocol PRN Reason: Symptoms of alcohol withdrawl Multivitamins (Thera Tab) 1 tab PO 0800 [facility] Pantoprazole Sodium (Protonix Ec Tab) 40 mg PO 0600 [facility] Last Admin: 06/28/17 05:48 Dose: 40 mg Paroxetine HCl (Paxil) 10 mg PO HS [facility] Thiamine HCl (Vitamin B1 Tab) 100 mg PO DAILY [facility] Last Admin: 06/28/17 10:38 Dose: 100 mg - Labs Labs: 06/28/17 06:00 06/28/17 06:00 Attending/Attestation - Attestation I have personally seen and examined this patient.: Yes I have fully participated in the care of the patient.: Yes I have reviewed all pertinent clinical information, including history, physical exam and plan: Yes Notes (Text): I have seen and examined the patient at bedside. Agree with the above note with the following additions/ exceptions: Briefly this is 47 year old male with history of alcohol abuse, anxiety and depression who came for evaluation of tachycardia, shakiness, anxiety, diaphoresis and found to have alcohol withdrawal syndrome. Patient had an interview yesterday and he decided not to drink at all which is very unusual for him. Alcohol level was <10 upon admission. Will continue banana bag, thiamine and ativan prn. He also has AGMA which has resolved. Blood culture pending. UA negative. Counselling provided regarding alcohol use. He has thrombocytopenia which is most likely due to alcohol induced BM suppression. HBA1C is 10.8. This is a new diagnosis. Diabetic education will be provided. Start high dose ISS. Psych consult appreciated. Patient was offered psych admission however he refused. Upon discharge patient will follow up in [facility] clinic. Dr Chava Daley
[2017-06-28 22:26] LABS: OSMOLALITY,SERUM 297 mosm/kg (272-300)
--- NOTE | 2017-06-28 23:23 | CON ---
DATE: HISTORY OF PRESENT ILLNESS: The patient is a 47-year-old male. Patient has self-reported history of anxiety, panic attacks, inability to function; as a result, the patient started to drink alcohol and it became a problem for the past year or so. At this time, patient came to the hospital, feeling severe shakiness, palpitation, uneasy feeling. The patient reported that he went to the job interview, but had panic attacks, which led him to come to the hospital. The patient described his panic attacks as fear of dying, mind tracing, sweating, not able to concentrate and restless behavior, most recent was yesterday. The patient reported that he was feeling depressed, hopeless, helpless, worthless, guilty. The patient was not able to hold a job. The patient has no goals in life even though that he is trying his best to keep a job and find the job. His anxiety and depression prevents him to do well. The patient reports that he drinks beer about six to eight 24 ounces of beer daily for past year. The patient reported that he has history of being having alcohol withdrawal symptoms in the past. The patient reports that before he liked feelings of beer, but right now he is drinking in order not to get sick. FAMILY HISTORY: Significant for panic disorder and mood spectrum disorder. The patient denied history of suicidality in the family. PAST PSYCHIATRIC HISTORY: The patient was evaluated by psychiatrist in the past. The patient reported that he did not tolerate Zoloft well, Xanax was giving him sedation, and he was not able to stay focus and concentrate right now. The patient does not have psychiatrist in the community. SOCIAL HISTORY: The patient lives with the brother in [place]. The patient has never been , and the patient does not have kids. 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 Vital signs seems to be stable. Temperature within normal limits, pulse is 66, blood pressure 126/85, respirations 18, oxygen saturation 95. Hemoglobin A1c 10.3. MEDICATIONS: Reviewed. The patient is on Ativan 1 mg every 6 hours scheduled, multivitamins, thiamine and folic acid started, Protonix started. This conventional mortgage underwriter educated the patient about Paxil, about naltrexone. The patient is willing to try those medications. LABORATORY DATA: Labs reviewed. WBC 4.2, hemoglobin and hematocrit is 14 and 40.8 respectively. Chemistry reviewed. Chemistry showed AST and ALT is mildly elevated. Urinalysis showed no infection. Urine drug screen was negative for any substances, and alcohol was less than 10. MENTAL STATUS EXAMINATION: The patient presented to be alert, oriented, pleasant, cooperative, mild upper extremity tremor. The patient was able to hold conversation. Fair eye contact. Mood described as anxious, depressed and hopeless. Affect was constricted. Thought process coherent. Thought content, the patient denied visual, auditory or tactile hallucinations. Denied paranoid ideation. The patient denied thoughts of harming himself or others, but was not able to function, feeling of hopeless and helpless. Insight and judgment seems to be improving. Impulses are well controlled. IMPRESSION: Rule out major depressive disorder, rule out substance-induced mood disorder and anxiety disorder, rule out panic disorder with agoraphobia, rule out social phobia, rule out generalized anxiety disorder, alcohol use disorder, alcohol withdrawal symptoms which are improving. PLAN: Continue multivitamins, thiamine and folic acid, Ativan 1 mg 4 times a day scheduled with a plan to taper that down. Paxil will be started 10 mg at the nighttime for depression and anxiety. Naltrexone will be discussed with the patient. The patient was offered psychiatric admission for further stabilization and observation, initially pt agreed, then changed his mind. Discussed with Dr. Daley. pt is not in danger to self or others, pt might benefit from psychiatric stabilization, but pt chose not to, pt does not meet criteria for screening for involuntary commitment. will follow up while pt is on the medical side should you have any questions, call me back. Martha Bazan MD DAEN
[2017-06-29] MEDS: Pantoprazole 40 mg EC Tab PO SCH (05:57)
[2017-06-29 07:10] LABS: BASO # 0.02 K/mm3 (0.0-2.0); BASO % 0.5 % (0.0-3.0); EOS # 0.1 (0.0-0.7); EOS % 1.2 % (1.5-5.0); GRAN # 2.4 (1.4-6.5); GRAN % 57.4 % (50.0-68.0); HEMOGLOBIN 15.5 g/dL (14.0-18.0); LYMPH # 1.2 (1.2-3.4); LYMPH % 29.4 % (22.0-35.0); MEAN CORPUSCULAR HEMOGLOBIN 33.6 pg (25.0-35.0); MEAN CORPUSCULAR HGB CONC 36.6 g/dl (31.0-37.0); MEAN PLATELET VOLUME 12.7 fl (7.0-11.0); MONO # 0.5 (0.1-0.6); MONO % 11.5 % (1.0-6.0); RBC 4.61 10^6/uL (3.5-6.1); RED CELL DISTRIBUTION WIDTH 11.7 % (11.5-14.5); WHITE BLOOD COUNT 4.2 10^3/ul (4.5-11.0)
[2017-06-29 07:26] LABS: ALB/GLOB RATIO 1.4 (1.1-1.8); ALBUMIN 4.4 g/dL (3.0-4.8); ALT/SGPT 116 U/L (7-56); AST/SGOT 114 U/L (17-59); BLOOD UREA NITROGEN 10 mg/dL (7-21); CALCIUM 10.2 mg/dL (8.4-10.5); GFR AFRICAN-AMERICAN > 60; GFR NON-AFRICAN AMERICAN > 60
[2017-06-29] MEDS: Multivitamin Therapeutic Tab PO SCH (08:45)
[2017-06-29] MEDS: Insulin Reg-HIGH-Coverage SC SCH ×4 (08:45→21:21)
--- NOTE | 2017-06-29 17:35 | CP.PCM.PN ---
Subjective - Date & Time of Evaluation Date of Evaluation: 06/29/17 Time of Evaluation: 17:27 - Subjective Subjective: Medicine progress note: Dr. Laura Daley Patient seen and examined at bedside. NO acute events overnight. However, patient had a rapid response called due to agitation today, patient's heart rate went up to 174, patient was having hallucinations, and patient also became hypertensive. Geodon was given to calm patient down. In the morning, patient was given some brief diabetic education by Dr. Daley and myself. Patient will meet with insurance policy clerk tomorrow. Objective - Vital Signs/Intake and Output Vital Signs (last 24 hours): Temp Pulse Resp BP Pulse Ox 98.0 F 110 H 18 141/91 H 98 06/29/17 06:00 06/29/17 10:00 06/29/17 06:00 06/29/17 06:00 06/29/17 06:00 Intake and Output: 06/29/17 06/29/17 06:59 18:59 Intake Total 660 Output Total 0 Balance 660 - Medications Medications: Current Medications Folic Acid (Folic Acid) 1 mg PO DAILY [facility] Last Admin: 06/29/17 09:02 Dose: 1 mg Insulin Human Regular (Humulin R High) 0 units SC ACHS SHIVANI PRN Reason: Protocol Last Admin: 06/29/17 14:00 Dose: 4 units Lorazepam (Ativan) 2 mg IVP Q2H PRN; Protocol PRN Reason: Anxiety Lorazepam (Ativan) 1 mg IVP Q4H [facility] PRN Reason: Protocol Last Admin: 06/29/17 15:11 Dose: 1 mg Lorazepam (Ativan) 2 mg PO QID [facility] PRN Reason: Protocol Multivitamins (Thera Tab) 1 tab PO 0800 [facility] Last Admin: 06/29/17 08:45 Dose: 1 tab Pantoprazole Sodium (Protonix Ec Tab) 40 mg PO 0600 [facility] Last Admin: 06/29/17 05:57 Dose: 40 mg Quetiapine Fumarate (Seroquel) 25 mg PO HS [facility] PRN Reason: Protocol Thiamine HCl (Vitamin B1 Tab) 100 mg PO DAILY [facility] Last Admin: 06/29/17 09:02 Dose: 100 mg Ziprasidone (Geodon Inj) 20 mg IM TID PRN; Protocol PRN Reason: severe agitation - Labs Labs: 06/29/17 06:25 06/29/17 06:25 - Constitutional Appears: Well - Head Exam Head Exam: ATRAUMATIC, NORMAL INSPECTION, NORMOCEPHALIC - Eye Exam Eye Exam: EOMI, Normal appearance, PERRL Pupil Exam: NORMAL ACCOMODATION, PERRL - ENT Exam ENT Exam: Mucous Membranes Moist, Normal Exam - Neck Exam Neck Exam: Full ROM, Normal Inspection. absent: Lymphadenopathy - Respiratory Exam Respiratory Exam: Clear to Ausculation Bilateral, NORMAL BREATHING PATTERN - Cardiovascular Exam Cardiovascular Exam: REGULAR RHYTHM, +S1, +S2. absent: Murmur - GI/Abdominal Exam GI & Abdominal Exam: Soft, Normal Bowel Sounds. absent: Tenderness - Extremities Exam Extremities Exam: Full ROM, Normal Capillary Refill, Normal Inspection. absent : Joint Swelling, Pedal Edema - Back Exam Back Exam: NORMAL INSPECTION - Neurological Exam Neurological Exam: Alert, Awake, CN II-XII Intact, Normal Gait, Oriented x3 - Psychiatric Exam Psychiatric exam: Normal Affect, Normal Mood - Skin Skin Exam: Dry, Intact, Normal Color, Warm Assessment and Plan - Assessment and Plan (Free Text) Assessment: Patient is a 47 y/o with pmhx of alcohol dependency, anxiety and depression who presented with tachycardia, and feeling shaky and is now being admitted with alcohol withdrawal, and metabolic derangements due to the latter. Alcohol withdrawal - Etoh level <10 - CIWA protocol - 2 mg q2 prn; Ativan 1 QID [facility] - Alcohol cessation counseling - Seizure precautions, fall precautions, neurochecks Thrombocytopenia - likely due to alcohol - Plt 91 - No signs of bleeding, will monitor for now Hypokalemia- resolved - Mag and phos within normal limits Diabetes - Hgba1c: 10.8 - Insulin sliding scale high and fingerstick achs Spoke to patient about intermediate card tender treatment and management Will send home on Metformin 500 BID - Diabetic nutrition counseling Mildly elevated calcium - will hydrate Transaminitis- likely due to alcohol dependency - downtrending - Hep panel: negative - Abdominal u/s: negative Transiently elevated BP - Resolved - Likely elevated due to withdrawal h/o anxiety and depression- psych consulted - Patient refused inpatient admission DVT prophylaxis: mechanical compressive devices GI prophylaxis: protonix po
--- NOTE | 2017-06-29 17:41 | PCM.RRT ---
SAUSAGE MEAT TRIMMER Nurse Assessment - Situation Date: 06/29/17 Time SAUSAGE MEAT TRIMMER was called: 12:48 SAUSAGE MEAT TRIMMER Responder Arrival Time: 12:50 SAUSAGE MEAT TRIMMER Location:: [address] [place] [address] Room Number: [id number] [employer]USAGE MEAT TRIMMER Reason for Call: Tachycardia, Change in Mental Status SAUSAGE MEAT TRIMMER Called By: RN - IV IV Inserted during SAUSAGE MEAT TRIMMER?: No - Respiratory Oxygen Delivery Method: Room Air Received Nebulizer Treatments:: No Was the Patient Ventilated with Bag/Mask 100% O2?: No Secretions Suctioned?: No Was the Patient Intubated?: No Was the Patient Placed on a Ventilator?: No - Medication Medications Administered During SAUSAGE MEAT TRIMMER: GEODON 10MG IVP STAT - Diagnostic Test Ordered EKG: Yes Chest X-Ray: No CT Scan: No CPR started during SAUSAGE MEAT TRIMMER?: No - Vital Signs Vital Sign: Rapid Response Vital Sign Pulse Rate 174 - Irwin Coma Scale Coma Scale Eye Opening: Spontaneous Coma Scale Motor: Obeys Commands Movement Coma Scale Verbal: Oriented - Time SAUSAGE MEAT TRIMMER Ended Time SAUSAGE MEAT TRIMMER Ended: 12:58 - Vital Signs at end of SAUSAGE MEAT TRIMMER Vital Signs at end of SAUSAGE MEAT TRIMMER: Rapid Response End Vital Sign Blood Pressure 164/108 Pulse Rate 129 Respiratory Rate 22 Temperature 98.9 F O2 Sat by Pulse Oximetry 100 - Recommendations 5) SAUSAGE MEAT TRIMMER Level of Care Recommendations: Remain in current setting Notifications: Attending Physician I.Reason for SAUSAGE MEAT TRIMMER - A) Acute Change in Patient: (Select all that apply): Acute change in mental status, Acute change in heart rate less than 50 or greater than 120 Subjective: Patient was agitated, complaining of "people making fun of him" describing what appears to be auditory hallucinations. Denies chest pain. Patient requesting to be given discharge papers. - Neurological Status (Select all that apply): Alert, Responsive, Verbal, Disoriented, Confused, Aggressive - Respiratory Oxygen Delivery Method: Room Air - Constitutional Appears: Non-toxic, In Acute Distress, Agitated, Confused - Head Head Exam: absent: ATRAUMATIC, NORMOCEPHALIC - Eyes Eye Exam: EOMI, Normal appearance, PERRL - Cardiovascular Exam Cardiovascular Exam: Tachycardia (noted on satellite project site monitor) - Neurological Exam Neurological Exam: Alert, Awake, Oriented x3 Additional exam: Agitated, anxious, with auditory hallucinations Plan - Assessment of Findings&Treatment Plan Patient is agitated, secondary to alcohol withdrawal. Attempted to reorient patient and calm him with discussion, offered him ativan for withdrawal symptoms including tachycardia. Patient refusing all medications, requesting to leave, complaining of "hearing people making fun of him", called 911 during encounter. Noel pelaez was called and patient was given 10mg geodon with the assistance of the security personnel
--- NOTE | 2017-06-29 19:40 | PN ---
DATE: FOLLOWUP NOTE SUBJECTIVE: Shortly, the patient is 47-year-old male, long and debilitating history of alcohol use disorder, still reported history of panic disorder and generalized anxiety disorder. Initially, the patient was seen yesterday. The patient was offered psychiatric inpatient admission, but the patient declined that offer. The patient was doing fine up until today. All of a sudden, the patient started to have altered mental status, was agitated, actively hallucinating, and Code Mejia was called. I discussed case with Dr. Daley, recommended to increase dose of Ativan p.o. 2 mg every 6 hours schedule. The patient is on p.r.n. medications as well as Seroquel will be started at the nighttime. This brief writer did found at the morning time, the patient presented to be alert and oriented, pleasant, cooperative. The patient did not have any psychotic symptoms . Vital signs checked in the morning time. Blood pressure was elevated at 141/91, but later on, the patient started to have blood pressure 164/108 and pulse was 174. Medications reviewed. Folic acid, Humulin, Ativan was adjusted to 2 mg p.o. four times a day scheduled as well as the patient was on 2 mg IV push every 2 hours as needed for alcohol withdrawal symptoms, multivitamins, folic acid, and thiamine. Paxil will be discontinued. Seroquel will be started at 25 mg at the nighttime for alcohol withdrawal delirium and Geodon will be also started. Labs reviewed. Hematology reviewed. Chemistry reviewed. AST and ALT 114 and 115 respectively. Serology: Hepatitis C negative. MENTAL STATUS EXAM: The patient's mental status alternate from being alert and oriented. No psychosis too, but feels very anxious as well as agitated. Visual hallucinations, auditory hallucinations, restless behavior, and status post Code Mejia. Insight and judgment seem to be limited. Impulses are unpredictable. IMPRESSION The patient's alternated mental status most likely related to alcohol withdrawal delirium with hallucinations and delusions. Alcohol use disorder. As per history, the patient has panic disorder and generalized anxiety disorder. PLAN Continue current management. Continue current medication. Medications adjusted. Geodon as needed for severe agitation and psychosis IM. Ativan was increased to 2 mg four times a day as scheduled p.r.n. medication IV push 2 mg also, it was started by medical team. Seroquel 25 mg at the nighttime will be started. We will follow up and advise accordingly. The patient is not clear to go home. Should you have any questions, give me a call back. This brief writer discussed case with Dr. Chava Daley. Thank you very much for letting me participate in the care of your patient. Martha Bazan MD
[2017-06-30] MEDS: Pantoprazole 40 mg EC Tab PO SCH (05:16)
[2017-06-30 06:29] LABS: BASO # 0.02 K/mm3 (0.0-2.0); BASO % 0.5 % (0.0-3.0); EOS # 0.1 (0.0-0.7); EOS % 1.6 % (1.5-5.0); GRAN # 2.14 (1.4-6.5); GRAN % 49.2 % (50.0-68.0); HEMOGLOBIN 15.8 g/dL (14.0-18.0); LYMPH # 1.5 (1.2-3.4); LYMPH % 35.3 % (22.0-35.0); MEAN CELL VOLUME 92.7 fl (80.0-105.0); MEAN CORPUSCULAR HEMOGLOBIN 33.9 pg (25.0-35.0); MEAN CORPUSCULAR HGB CONC 36.6 g/dl (31.0-37.0); MEAN PLATELET VOLUME 12.9 fl (7.0-11.0); MONO # 0.6 (0.1-0.6); MONO % 13.4 % (1.0-6.0); RBC 4.66 10^6/uL (3.5-6.1); WHITE BLOOD COUNT 4.3 10^3/ul (4.5-11.0)
[2017-06-30 07:08] LABS: ALB/GLOB RATIO 1.3 (1.1-1.8); ALBUMIN 4.1 g/dL (3.0-4.8); ALT/SGPT 164 U/L (7-56); AST/SGOT 173 U/L (17-59); BLOOD UREA NITROGEN 12 mg/dL (7-21); CALCIUM 10.2 mg/dL (8.4-10.5); GFR AFRICAN-AMERICAN > 60; GFR NON-AFRICAN AMERICAN > 60
[2017-06-30] MEDS: Insulin Reg-HIGH-Coverage SC SCH (07:31)
[2017-06-30] MEDS: Multivitamin Therapeutic Tab PO SCH (08:31)
[2017-06-30] MEDS: Insulin Reg-MEDIUM-Coverage SC SCH ×3 (12:18→22:21)
--- NOTE | 2017-06-30 13:45 | PN ---
DATE: FOLLOWUP NOTE SUBJECTIVE: In short, the patient is 47-year-old male, self-reported history of anxiety, history of alcohol use disorder. The patient was admitted on the medical side for alcohol withdrawal symptoms. The patient became delirious yesterday. Noel theodore was called. The patient was actually paranoid, had feeling that other people are laughing at him. Required to be medicated with Geodon. This fiction and nonfiction prose writer implemented Seroquel at the nighttime, also increased the dose of Ativan and the patient is currently on one-to-one. The patient was seen and examined. The patient has poor insight what happened yesterday. The patient is convinced that somebody was laughing at him and calling him names. The patient still appears to be guarded and paranoid. Vital signs seems to be stable. Temperature 97.2, pulse is 86, blood pressure 125/81, respiration 19, oxygen saturation is 99. Medications reviewed. Folic acid, Humulin, Ativan 2 mg IV push every 2 hours as needed, Ativan 2 mg four times a day scheduled, multivitamins, Protonix, Seroquel 25 mg at the nighttime, thiamine 100 mg and Geodon 20 mg IM three times a day as needed for agitation. Since yesterday, there are no periods of agitation. Labs reviewed. MENTAL STATUS EXAMINATION: The patient appears to be alert, anxious, upper extremity shakes. Intermittent eye contact. Speech was underproductive. Mood described I am fine. Affect was constricted. Mood congruent. Thought process seems to be coherent. Thought content, the patient appears to be guarded, paranoid. The patient convinced that yesterday somebody was calling his names as well as laughing at him, mildly guarded and paranoid. Insight and judgment seems to be improving. Impulses are unpredictable. IMPRESSION: Alcohol withdrawal delirium as per history; generalized anxiety disorder and panic disorder, self-reported PLAN: Continue current management. Continue current medications. One-to-one should be continued. The patient is in delirium stage and is not medically stable. The patient was educated about risks, benefits and alternatives of the medications. The day before yesterday, the patient was offered psychiatric admission, but the patient declined that offer. The patient still does not want to stay in the Psychiatric Inpatient Unit and at present moment, the patient does not meet the criteria because he is not medically stable. Thank you very much for letting me participate in the care of your patient. Should you have any questions, give me a call back. Martha Bazan MD
--- NOTE | 2017-06-30 14:41 | CP.PCM.PN ---
<ClaraRylan - Last Filed: 06/30/17 14:34> Subjective - Date & Time of Evaluation Date of Evaluation: 06/30/17 Time of Evaluation: 14:43 - Subjective Subjective: Medicine progress note: Dr. Atkinson Patient seen and examined at bedside. Patient denies any acute complaints overnight, patient did not require any prn ativan overnight. Patient is calm and cooperative Objective - Vital Signs/Intake and Output Vital Signs (last 24 hours): Temp Pulse Resp BP Pulse Ox 97.2 F L 86 19 125/81 99 06/30/17 08:25 06/30/17 08:25 06/30/17 08:25 06/30/17 08:25 06/30/17 08:25 Intake and Output: 06/30/17 06/30/17 06:59 18:59 Intake Total 660 Balance 660 - Medications Medications: Current Medications Folic Acid (Folic Acid) 1 mg PO DAILY [facility] Last Admin: 06/30/17 09:10 Dose: 1 mg Insulin Human Regular (Humulin R Med) 0 units SC ACHS [facility] PRN Reason: Protocol Last Admin: 06/30/17 12:18 Dose: 3 units Lorazepam (Ativan) 2 mg IVP Q2H PRN; Protocol PRN Reason: Anxiety Lorazepam (Ativan) 2 mg PO QID [facility] PRN Reason: Protocol Last Admin: 06/30/17 14:06 Dose: 2 mg Multivitamins (Thera Tab) 1 tab PO 0800 [facility] Last Admin: 06/30/17 08:31 Dose: 1 tab Pantoprazole Sodium (Protonix Ec Tab) 40 mg PO 0600 [facility] Last Admin: 06/30/17 05:16 Dose: 40 mg Quetiapine Fumarate (Seroquel) 25 mg PO HS [facility] PRN Reason: Protocol Last Admin: 06/29/17 21:24 Dose: 25 mg Thiamine HCl (Vitamin B1 Tab) 100 mg PO DAILY [facility] Last Admin: 06/30/17 09:10 Dose: 100 mg Ziprasidone (Geodon Inj) 20 mg IM TID PRN; Protocol PRN Reason: severe agitation - Labs Labs: 06/30/17 05:00 06/30/17 05:00 - Constitutional Appears: Well - Head Exam Head Exam: ATRAUMATIC, NORMAL INSPECTION, NORMOCEPHALIC - Eye Exam Eye Exam: EOMI, Normal appearance, PERRL Pupil Exam: NORMAL ACCOMODATION, PERRL - ENT Exam ENT Exam: Mucous Membranes Moist, Normal Exam - Neck Exam Neck Exam: Full ROM, Normal Inspection. absent: Lymphadenopathy - Respiratory Exam Respiratory Exam: Clear to Ausculation Bilateral, NORMAL BREATHING PATTERN - Cardiovascular Exam Cardiovascular Exam: REGULAR RHYTHM, +S1, +S2. absent: Murmur - GI/Abdominal Exam GI & Abdominal Exam: Soft, Normal Bowel Sounds. absent: Tenderness - Extremities Exam Extremities Exam: Full ROM, Normal Capillary Refill, Normal Inspection. absent : Joint Swelling, Pedal Edema - Back Exam Back Exam: NORMAL INSPECTION - Neurological Exam Neurological Exam: Alert, Awake, CN II-XII Intact, Normal Gait, Oriented x3 - Psychiatric Exam Psychiatric exam: Normal Affect, Normal Mood - Skin Skin Exam: Dry, Intact, Normal Color, Warm Assessment and Plan - Assessment and Plan (Free Text) Assessment: Assessment and Plan: Patient is a 47 year old male with past medical history of alcohol dependency, anxiety and depression who presented with tachycardia, and feeling shaky and is now being admitted with alcohol withdrawal and metabolic derangements due to the latter. Patient is calm and stable now. Alcohol withdrawal - Alcohol level <10 - CIWA protocol - 2 mg q2 prn; Ativan 1 QID SHIV[facility]; Geodon 20 TID. 1:1 discontinued - Alcohol cessation counseling - Seizure precautions, fall precautions, neurochecks Thrombocytopenia - likely due to chronic alcohol use - Plt 91 - No signs of bleeding, will monitor for now Hypokalemia- resolved - Mag and phos within normal limits Diabetes - Hgba1c: 10.8 - Insulin sliding scale high and fingerstick achs Spoke to patient about usp treatment and management Will send home on Metformin 500 BID - Diabetic nutrition counseling Mildly elevated calcium - Will hydrate Transaminitis- likely due to alcohol dependency - downtrending - Hep panel: negative - Abdominal u/s: negative Transiently elevated BP - Resolved - Likely elevated due to withdrawal h/o anxiety and depression- psych consulted - Patient refused inpatient admission DVT prophylaxis: mechanical compressive devices GI prophylaxis: protonix po Dispo: Patient will likely be ready for discharge tomorrow <Michael Atkinson - Last Filed: 06/30/17 17:17> Objective - Vital Signs/Intake and Output Vital Signs (last 24 hours): Temp Pulse Resp BP Pulse Ox 97.2 F L 87 19 125/81 99 06/30/17 08:25 06/30/17 14:00 06/30/17 08:25 06/30/17 08:25 06/30/17 08:25 Intake and Output: 06/30/17 06/30/17 06:59 18:59 Intake Total 660 Balance 660 - Medications Medications: Current Medications Folic Acid (Folic Acid) 1 mg PO DAILY [facility] Last Admin: 06/30/17 09:10 Dose: 1 mg Insulin Human Regular (Humulin R Med) 0 units SC ACHS [facility] PRN Reason: Protocol Last Admin: 06/30/17 12:18 Dose: 3 units Lorazepam (Ativan) 2 mg IVP Q2H PRN; Protocol PRN Reason: Anxiety Lorazepam (Ativan) 2 mg PO QID [facility] PRN Reason: Protocol Last Admin: 06/30/17 14:06 Dose: 2 mg Multivitamins (Thera Tab) 1 tab PO 0800 [facility] Last Admin: 06/30/17 08:31 Dose: 1 tab Pantoprazole Sodium (Protonix Ec Tab) 40 mg PO 0600 [facility] Last Admin: 06/30/17 05:16 Dose: 40 mg Quetiapine Fumarate (Seroquel) 25 mg PO HS [facility] PRN Reason: Protocol Last Admin: 06/29/17 21:24 Dose: 25 mg Thiamine HCl (Vitamin B1 Tab) 100 mg PO DAILY [facility] Last Admin: 06/30/17 09:10 Dose: 100 mg Ziprasidone (Geodon Inj) 20 mg IM TID PRN; Protocol PRN Reason: severe agitation - Labs Labs: 06/30/17 05:00 06/30/17 05:00 Attending/Attestation - Attestation I have personally seen and examined this patient.: Yes I have fully participated in the care of the patient.: Yes I have reviewed all pertinent clinical information, including history, physical exam and plan: Yes Notes (Text): 06/30/17 17:08 Attending note ; Patient seen and examined with resident . Patient is a 47 year old male with history of alcohol abuse, anxiety and depression who came for evaluation is admitted with alcohol withdrawal. Patient was delirious yesterday .given Geodon . Currently patient is alert, awake and oriented . Complaining of anxiety . Continue CIWA protocol. Continue Ativan. Continue multivitamin, thiamine, folic acid. Anxiety; psychiatric evaluation requested. Diabetes; started on po metformin. Diabetic nurse education given. Supplies given. Dietary education given. Possible discharge home tomorrow versus transferred to psychiatric floor if needed. Upon discharge patient will follow up in [facility] clinic. 06/30/17 17:17
[2017-06-30 23:37] LABS: URINE BILIRUBIN NEGATIVE (NEGATIVE); URINE BLOOD NEGATIVE (NEGATIVE); URINE GLUCOSE (UA) >=1000 mg/dL (NEGATIVE); URINE LEUKOCYTE ESTERASE NEGATIVE Leu/uL (NEGATIVE); URINE PROTEIN NEGATIVE mg/dL (<30 mg/dL); URINE UROBILINOGEN 0.2 E.U./dL (<1 E.U./dL)
[2017-06-30 23:52] LABS: URINE APPEARANCE CLEAR (CLEAR); URINE COLOR YELLOW (YELLOW)
[2017-07-01 01:21] VITALS: O2SAT 97
[2017-07-01] MEDS: Pantoprazole 40 mg EC Tab PO SCH (06:22)
[2017-07-01 06:33] LABS: BASO # 0.02 K/mm3 (0.0-2.0); BASO % 0.5 % (0.0-3.0); EOS # 0.1 (0.0-0.7); EOS % 2.1 % (1.5-5.0); GRAN # 1.75 (1.4-6.5); GRAN % 45.5 % (50.0-68.0); HEMOGLOBIN 14.6 g/dL (14.0-18.0); LYMPH # 1.5 (1.2-3.4); LYMPH % 37.8 % (22.0-35.0); MEAN CELL VOLUME 93.1 fl (80.0-105.0); MEAN CORPUSCULAR HEMOGLOBIN 33.7 pg (25.0-35.0); MEAN CORPUSCULAR HGB CONC 36.2 g/dl (31.0-37.0); MONO # 0.5 (0.1-0.6); MONO % 14.1 % (1.0-6.0); RBC 4.33 10^6/uL (3.5-6.1); RED CELL DISTRIBUTION WIDTH 11.8 % (11.5-14.5); WHITE BLOOD COUNT 3.8 10^3/ul (4.5-11.0)
[2017-07-01 06:53] LABS: ALB/GLOB RATIO 1.3 (1.1-1.8); ALBUMIN 3.6 g/dL (3.0-4.8); ALT/SGPT 160 U/L (7-56); AST/SGOT 126 U/L (17-59); BLOOD UREA NITROGEN 15 mg/dL (7-21); CALCIUM 9.8 mg/dL (8.4-10.5); GFR AFRICAN-AMERICAN > 60; GFR NON-AFRICAN AMERICAN > 60
[2017-07-01 08:29] VITALS: BP 99/59; PULSE 75; RESP 19; TEMP 97.9
[2017-07-01] MEDS: Insulin Reg-MEDIUM-Coverage SC SCH (09:07)
[2017-07-01] MEDS: Multivitamin Therapeutic Tab PO SCH (09:07)
[2017-07-01] MEDS ORDERED: Potassium Chloride 20 mEq ER Tab PO STA (09:17)
--- NOTE | 2017-07-01 11:26 | CP.PCM.DIS ---
<Rylan Elizabeth - Last Filed: 07/01/17 15:44> Provider - Provider Date of Admission: 06/27/17 14:52 Attending physician: Michael Atkinson MD Primary care physician: Jose Juan Miranda MD Consults: Dr. Thomas = Psych Diabetic Advice Nurse Time Spent in preparation of Discharge (in minutes): 45 Hospital Course - Lab Results Lab Results: Micro Results 06/27/17 20:15 Blood-Venous Blood Culture - Preliminary NO GROWTH AFTER 3 DAYS 06/27/17 20:00 Blood-Venous Blood Culture - Preliminary NO GROWTH AFTER 3 DAYS Most Recent Lab Values WBC 3.8 10^3/ul (4.5-11.0) L 07/01/17 06:19 RBC 4.33 10^6/uL (3.5-6.1) 07/01/17 06:19 Hgb 14.6 g/dL (14.0-18.0) 07/01/17 06:19 Hct 40.3 % (42.0-52.0) L 07/01/17 06:19 MCV 93.1 fl (80.0-105.0) 07/01/17 06:19 MCH 33.7 pg (25.0-35.0) 07/01/17 06:19 MCHC 36.2 g/dl (31.0-37.0) 07/01/17 06:19 RDW 11.8 % (11.5-14.5) 07/01/17 06:19 Plt Count 82 10^3/uL (120.0-450.0) L 07/01/17 06:19 MPV 12.0 fl (7.0-11.0) H 07/01/17 06:19 Gran % 45.5 % (50.0-68.0) L 07/01/17 06:19 Lymph % (Auto) 37.8 % (22.0-35.0) H 07/01/17 06:19 Nance % (Auto) 14.1 % (1.0-6.0) H 07/01/17 06:19 Eos % (Auto) 2.1 % (1.5-5.0) 07/01/17 06:19 Baso % (Auto) 0.5 % (0.0-3.0) 07/01/17 06:19 Gran # 1.75 (1.4-6.5) 07/01/17 06:19 Lymph # (Auto) 1.5 (1.2-3.4) 07/01/17 06:19 Nance # (Auto) 0.5 (0.1-0.6) 07/01/17 06:19 Eos # (Auto) 0.1 (0.0-0.7) 07/01/17 06:19 Baso # (Auto) 0.02 K/mm3 (0.0-2.0) 07/01/17 06:19 pO2 25 mm/Hg (30-55) L 06/27/17 20:15 VBG pH 7.42 (7.32-7.43) 06/27/17 20:15 VBG pCO2 45.0 (40-60) 06/27/17 20:15 VBG HCO3 29.2 mmol/l (21-28) H 06/27/17 20:15 VBG Total CO2 30.6 mmol.L (22-28) H 06/27/17 20:15 VBG O2 Sat (Calc) 72.8 % (40-65) H 06/27/17 20:15 VBG Base Excess 4.0 mmol/L (0.0-2.0) H 06/27/17 20:15 VBG Potassium 3.6 mmol/L (3.6-5.2) 06/27/17 20:15 Sodium 135.0 mmol/L (132-148) 06/27/17 20:15 Chloride 96.0 mmol/L (98-107) L 06/27/17 20:15 Glucose 301 mg/dl (75-110) H 06/27/17 20:15 Lactate 1.6 mmol/L (0.7-2.1) 06/27/17 20:15 FiO2 21.0 % 06/27/17 20:15 Sodium 137 mmol/L (132-148) 07/01/17 06:19 Potassium 3.4 mmol/L (3.6-5.0) L 07/01/17 06:19 Chloride 101 mmol/L (98-107) 07/01/17 06:19 Carbon Dioxide 27 mmol/L (21-33) 07/01/17 06:19 Anion Gap 12 (10-20) 07/01/17 06:19 BUN 15 mg/dL (7-21) 07/01/17 06:19 Creatinine 0.7 mg/dl (0.8-1.5) L 07/01/17 06:19 Est GFR ( Amer) > 60 07/01/17 06:19 Est GFR (Non-Af Amer) > 60 07/01/17 06:19 POC Glucose (mg/dL) 202 mg/dL (65-110) H 07/01/17 07:30 Random Glucose 249 mg/dL (70-110) H 07/01/17 06:19 Hemoglobin A1c 10.3 % (4.2-6.5) H 06/27/17 20:15 Serum Osmolality 297 mosm/kg (272-300) 06/27/17 14:04 Calcium 9.8 mg/dL (8.4-10.5) 07/01/17 06:19 Phosphorus 4.8 mg/dL (2.5-4.5) H 07/01/17 06:19 Magnesium 2.0 mg/dL (1.7-2.2) 07/01/17 06:19 Total Bilirubin 0.9 mg/dL (0.2-1.3) 07/01/17 06:19 AST 126 U/L (17-59) H D 07/01/17 06:19 ALT 160 U/L (7-56) H 07/01/17 06:19 Alkaline Phosphatase 90 U/L (38-126) 07/01/17 06:19 Total Protein 6.4 g/dL (5.8-8.3) 07/01/17 06:19 Albumin 3.6 g/dL (3.0-4.8) 07/01/17 06:19 Globulin 2.8 gm/dL 07/01/17 06:19 Albumin/Globulin Ratio 1.3 (1.1-1.8) 07/01/17 06:19 Venous Blood Potassium 3.6 mmol/L (3.6-5.2) 06/27/17 20:15 Urine Color Yellow (YELLOW) 06/30/17 22:16 Urine Appearance Clear (CLEAR) 06/30/17 22:16 Urine pH 6.0 (4.7-8.0) 06/30/17 22:16 Ur Specific Minto 1.010 (1.005-1.035) 06/30/17 22:16 Urine Protein Negative mg/dL (<30 mg/dL) 06/30/17 22:16 Urine Glucose (UA) >=1000 mg/dL (NEGATIVE) 06/30/17 22:16 Urine Ketones Negative mg/dL (NEGATIVE) 06/30/17 22:16 Urine Blood Negative (NEGATIVE) 06/30/17 22:16 Urine Nitrate Negative (NEGATIVE) 06/30/17 22:16 Urine Bilirubin Negative (NEGATIVE) 06/30/17 22:16 Urine Urobilinogen 0.2 E.U./dL (<1 E.U./dL) 06/30/17 22:16 Ur Leukocyte Esterase Negative Manuel/uL (NEGATIVE) 06/30/17 22:16 Urine RBC 0 - 2 /hpf (0-2) 06/27/17 14:04 Urine WBC 0 - 2 /hpf (0-6) 06/27/17 14:04 Ur Epithelial Cells 1 - 3 /hpf (0-5) 06/27/17 14:04 Urine Bacteria Few (NEG) 06/27/17 14:04 Salicylates < 1 mg/dL (2.0-20.0) L 06/27/17 14:04 Urine Opiates Screen Negative (NEGATIVE) 06/27/17 14:04 Urine Methadone Screen Negative (NEGATIVE) 06/27/17 14:04 Acetaminophen < 10.0 ug/ml (10.0-20.0) L 06/27/17 14:04 Ur Barbiturates Screen Negative (NEGATIVE) 06/27/17 14:04 Ur Phencyclidine Scrn Negative (NEGATIVE) 06/27/17 14:04 Ur Amphetamines Screen Negative (NEGATIVE) 06/27/17 14:04 U Benzodiazepines Scrn Negative (NEGATIVE) 06/27/17 14:04 U Oth Cocaine Metabols Negative (NEGATIVE) 06/27/17 14:04 U Cannabinoids Screen Negative (NEGATIVE) 06/27/17 14:04 Alcohol, Quantitative < 10 mg/dL (0-10) 06/27/17 14:04 Hepatitis A IgM Ab Negative (NEGATIVE) 06/27/17 20:15 Hep Bs Antigen Negative (NEGATIVE) 06/27/17 20:15 Hep B Core IgM Ab Negative (NEGATIVE) 06/27/17 20:15 Hepatitis C Antibody Negative (NEGATIVE) 06/27/17 20:15 - Hospital Course Hospital Course: 47 year old male with a past medical history of anxiety presented to [facility] with acute alcohol withdrawals. Patient stated that he had drank alcohol everyday for 8 months to one year, but stopped the day of admission for a job interview. At the interview, patient started having symptoms of diaphoresis, nervousness , and shakiness. Patient came to the ER. Upon admission, patient's alcohol level was still 66 from the consumption the day before. Patient was doing well, and was to be discharged the next day but his A1C came back a 10.8. Patient was given diabetic education, was going to be discharged, but then had symptoms of withdrawal and agitation. Patient was seen by Dr. Thomas in psych and was started on Geodon and Ativan scheduled doses. The day of discharge, patient was found to be stable. He was given follow up instructions for his diabetes. Patient truly would like to turn his life around and is serious about alcohol cessation. Discharge Exam - Head Exam Head Exam: ATRAUMATIC, NORMAL INSPECTION, NORMOCEPHALIC - Eye Exam Eye Exam: EOMI, Normal appearance, PERRL Pupil Exam: NORMAL ACCOMODATION, PERRL - Respiratory Exam Respiratory Exam: Clear to PA & Lateral, NORMAL BREATHING PATTERN, UNREMARKABLE - Cardiovascular Exam Cardiovascular Exam: REGULAR RHYTHM - GI/Abdominal Exam GI & Abdominal Exam: Normal Bowel Sounds - Neurological Exam Neurological exam: Alert, CN II-XII Intact, Normal Gait, Oriented x3, Reflexes Normal - Psychiatric Exam Psychiatric exam: Normal Affect, Normal Mood - Skin Skin Exam: Dry, Intact, Normal Color, Warm Discharge Plan - Discharge Medications Prescriptions: Folic Acid 1 mg PO DAILY #30 tab LORazepam [Ativan] 1 mg PO BID #2 tab Lorazepam [Ativan] 0.5 mg PO BID #4 tab MetFORMIN [glucoPHAGE] 500 mg PO BID #60 tab Multivit-Min/Iron/Folic Acid/K [Adults Multivitamin Caplet] 1 each PO DAILY #30 tablet Thiamine [Vitamin B1 Tab] 100 mg PO DAILY #30 tab - Follow Up Plan Condition: STABLE Disposition: HOME/ ROUTINE Instructions: Diabetes Type 2 (DC), Alcohol Withdrawal (DC), Alcohol Abuse and Alcoholism (DC), Dehydration (DC), Dehydration (GEN) Additional Instructions: Please follow up with [facility] clinic in 3 days for your new diagnosis of diabetes: 07/07 @ 09:00A Please also follow up with [facility] Please refrain from alcohol use Referrals: [facility] [Outside] [facility] at [facility] [Outside] Jose Juan Miranda MD [Primary Care Provider] - <Michael Atkinson - Last Filed: 07/01/17 16:56> Provider - Provider Date of Admission: 06/27/17 14:52 Attending physician: Michael Atkinson MD Primary care physician: Jose Juan Miranda MD Hospital Course - Lab Results Lab Results: Micro Results 06/27/17 20:15 Blood-Venous Blood Culture - Preliminary NO GROWTH AFTER 3 DAYS 06/27/17 20:00 Blood-Venous Blood Culture - Preliminary NO GROWTH AFTER 3 DAYS Most Recent Lab Values WBC 3.8 10^3/ul (4.5-11.0) L 07/01/17 06:19 RBC 4.33 10^6/uL (3.5-6.1) 07/01/17 06:19 Hgb 14.6 g/dL (14.0-18.0) 07/01/17 06:19 Hct 40.3 % (42.0-52.0) L 07/01/17 06:19 MCV 93.1 fl (80.0-105.0) 07/01/17 06:19 MCH 33.7 pg (25.0-35.0) 07/01/17 06:19 MCHC 36.2 g/dl (31.0-37.0) 07/01/17 06:19 RDW 11.8 % (11.5-14.5) 07/01/17 06:19 Plt Count 82 10^3/uL (120.0-450.0) L 07/01/17 06:19 MPV 12.0 fl (7.0-11.0) H 07/01/17 06:19 Gran % 45.5 % (50.0-68.0) L 07/01/17 06:19 Lymph % (Auto) 37.8 % (22.0-35.0) H 07/01/17 06:19 Nance % (Auto) 14.1 % (1.0-6.0) H 07/01/17 06:19 Eos % (Auto) 2.1 % (1.5-5.0) 07/01/17 06:19 Baso % (Auto) 0.5 % (0.0-3.0) 07/01/17 06:19 Gran # 1.75 (1.4-6.5) 07/01/17 06:19 Lymph # (Auto) 1.5 (1.2-3.4) 07/01/17 06:19 Nance # (Auto) 0.5 (0.1-0.6) 07/01/17 06:19 Eos # (Auto) 0.1 (0.0-0.7) 07/01/17 06:19 Baso # (Auto) 0.02 K/mm3 (0.0-2.0) 07/01/17 06:19 pO2 25 mm/Hg (30-55) L 06/27/17 20:15 VBG pH 7.42 (7.32-7.43) 06/27/17 20:15 VBG pCO2 45.0 (40-60) 06/27/17 20:15 VBG HCO3 29.2 mmol/l (21-28) H 06/27/17 20:15 VBG Total CO2 30.6 mmol.L (22-28) H 06/27/17 20:15 VBG O2 Sat (Calc) 72.8 % (40-65) H 06/27/17 20:15 VBG Base Excess 4.0 mmol/L (0.0-2.0) H 06/27/17 20:15 VBG Potassium 3.6 mmol/L (3.6-5.2) 06/27/17 20:15 Sodium 135.0 mmol/L (132-148) 06/27/17 20:15 Chloride 96.0 mmol/L (98-107) L 06/27/17 20:15 Glucose 301 mg/dl (75-110) H 06/27/17 20:15 Lactate 1.6 mmol/L (0.7-2.1) 06/27/17 20:15 FiO2 21.0 % 06/27/17 20:15 Sodium 137 mmol/L (132-148) 07/01/17 06:19 Potassium 3.4 mmol/L (3.6-5.0) L 07/01/17 06:19 Chloride 101 mmol/L (98-107) 07/01/17 06:19 Carbon Dioxide 27 mmol/L (21-33) 07/01/17 06:19 Anion Gap 12 (10-20) 07/01/17 06:19 BUN 15 mg/dL (7-21) 07/01/17 06:19 Creatinine 0.7 mg/dl (0.8-1.5) L 07/01/17 06:19 Est GFR ( Amer) > 60 07/01/17 06:19 Est GFR (Non-Af Amer) > 60 07/01/17 06:19 POC Glucose (mg/dL) 214 mg/dL (65-110) H 07/01/17 11:23 Random Glucose 249 mg/dL (70-110) H 07/01/17 06:19 Hemoglobin A1c 10.3 % (4.2-6.5) H 06/27/17 20:15 Serum Osmolality 297 mosm/kg (272-300) 06/27/17 14:04 Calcium 9.8 mg/dL (8.4-10.5) 07/01/17 06:19 Phosphorus 4.8 mg/dL (2.5-4.5) H 07/01/17 06:19 Magnesium 2.0 mg/dL (1.7-2.2) 07/01/17 06:19 Total Bilirubin 0.9 mg/dL (0.2-1.3) 07/01/17 06:19 AST 126 U/L (17-59) H D 07/01/17 06:19 ALT 160 U/L (7-56) H 07/01/17 06:19 Alkaline Phosphatase 90 U/L (38-126) 07/01/17 06:19 Total Protein 6.4 g/dL (5.8-8.3) 07/01/17 06:19 Albumin 3.6 g/dL (3.0-4.8) 07/01/17 06:19 Globulin 2.8 gm/dL 07/01/17 06:19 Albumin/Globulin Ratio 1.3 (1.1-1.8) 07/01/17 06:19 Venous Blood Potassium 3.6 mmol/L (3.6-5.2) 06/27/17 20:15 Urine Color Yellow (YELLOW) 06/30/17 22:16 Urine Appearance Clear (CLEAR) 06/30/17 22:16 Urine pH 6.0 (4.7-8.0) 06/30/17 22:16 Ur Specific Minto 1.010 (1.005-1.035) 06/30/17 22:16 Urine Protein Negative mg/dL (<30 mg/dL) 06/30/17 22:16 Urine Glucose (UA) >=1000 mg/dL (NEGATIVE) 06/30/17 22:16 Urine Ketones Negative mg/dL (NEGATIVE) 06/30/17 22:16 Urine Blood Negative (NEGATIVE) 06/30/17 22:16 Urine Nitrate Negative (NEGATIVE) 06/30/17 22:16 Urine Bilirubin Negative (NEGATIVE) 06/30/17 22:16 Urine Urobilinogen 0.2 E.U./dL (<1 E.U./dL) 06/30/17 22:16 Ur Leukocyte Esterase Negative Manuel/uL (NEGATIVE) 06/30/17 22:16 Urine RBC 0 - 2 /hpf (0-2) 06/27/17 14:04 Urine WBC 0 - 2 /hpf (0-6) 06/27/17 14:04 Ur Epithelial Cells 1 - 3 /hpf (0-5) 06/27/17 14:04 Urine Bacteria Few (NEG) 06/27/17 14:04 Salicylates < 1 mg/dL (2.0-20.0) L 06/27/17 14:04 Urine Opiates Screen Negative (NEGATIVE) 06/27/17 14:04 Urine Methadone Screen Negative (NEGATIVE) 06/27/17 14:04 Acetaminophen < 10.0 ug/ml (10.0-20.0) L 06/27/17 14:04 Ur Barbiturates Screen Negative (NEGATIVE) 06/27/17 14:04 Ur Phencyclidine Scrn Negative (NEGATIVE) 06/27/17 14:04 Ur Amphetamines Screen Negative (NEGATIVE) 06/27/17 14:04 U Benzodiazepines Scrn Negative (NEGATIVE) 06/27/17 14:04 U Oth Cocaine Metabols Negative (NEGATIVE) 06/27/17 14:04 U Cannabinoids Screen Negative (NEGATIVE) 06/27/17 14:04 Alcohol, Quantitative < 10 mg/dL (0-10) 06/27/17 14:04 Hepatitis A IgM Ab Negative (NEGATIVE) 06/27/17 20:15 Hep Bs Antigen Negative (NEGATIVE) 06/27/17 20:15 Hep B Core IgM Ab Negative (NEGATIVE) 06/27/17 20:15 Hepatitis C Antibody Negative (NEGATIVE) 06/27/17 20:15 Attending/Attestation - Attestation I have personally seen and examined this patient.: Yes I have fully participated in the care of the patient.: Yes I have reviewed all pertinent clinical information, including history, physical exam and plan: Yes Notes (Text): 07/01/17 16:53 Attending note ; Patient seen and examined with resident . Patient is a 47 year old male with history of alcohol abuse, anxiety and depression who came for evaluation is admitted with alcohol withdrawa Currently patient is alert, awake and oriented . withdrawal symptoms resolved. treated with Ativan, multivitamin, thiamine, folic acid. Anxiety; psychiatric evaluation appreciated. patient is advised follow-up with [facility]. Diabetes; started on po metformin. Diabetic nurse education given. Supplies given. Dietary education given. elevated LFTs; secondary to alcohol abuse. Repeat blood work next. discharge home today. Follow-up appointment made for next Friday for repeat blood work. Upon discharge patient will follow up in [facility] clinic. diagnosis; alcohol abuse Anxiety Elevated LFTs Diabetes
--- NOTE | 2017-07-01 13:34 | PN ---
DATE: FOLLOWUP NOTE SUBJECTIVE: The patient was followed up today. The patient presented to be alert and oriented, pleasant, cooperative. The patient reports that he feels much better. The patient denied any hallucinations. The patient's withdrawal symptoms are much better. The patient does not have any upper extremity withdrawals. Vital signs are stable. Temperature 97.9, pulse 75, blood pressure 99/59, respirations 19, oxygen saturation is 97. Medications reviewed. Folic acid, Ativan 1 mg IV push as needed, but the patient did not require that, 1 mg four times daily p.r.n. for anxiety. The patient did not require for any p.r.n. medication. The patient is on multivitamins, Protonix and Seroquel 25 mg as needed for agitation, Geodon. The patient did not require that and thiamine 100 mg daily. Labs reviewed. WBC cells 3.8. Chemistry reviewed. AST and ALT elevated 126, which is trending down and ALT is 160, which also is decreasing to compare with yesterday. MENTAL STATUS EXAMINATION: As this senior grant writer described above, the patient was alert and oriented, pleasant, cooperative, intermittent eye contact. Mood described, I am fine, I feel okay. Affect was reactive, mood congruent. Thought process seems to be coherent and goal directed. Thought content, the patient denied visual, auditory or tactile hallucinations. Denied paranoid ideation. The patient denied thoughts of harming himself or others. Denied intent or plan. There are no episodes of aggression or agitation for past 48 hours. The patient was on one-to-one. No agitation, no aggression as per one-to-one. The patient has good appetite, ate 100% of the meal. No confusion. The patient is calm, cooperative, socially appropriate. IMPRESSION: Most likely, the patient has alcohol use disorder, alcohol withdrawal delirium, which is much better and cleared up, substance-induced mood disorder, rule out substance-induced anxiety disorder. The patient suffered from anxiety for really long time, but the patient does not have any thoughts of harming himself or others. Does not require to go to the psychiatric inpatient unit any longer. PLAN: Continue current management. Continue current medication. This senior grant writer offered information about outpatient clinics. Handout was given to the patient about [facility], [facility]. The patient was appreciative. The patient denied thoughts of harming himself or others. Denied intent or plan. The patient pose no imminent danger to self or others. We will sign off. The patient was also educated about dangerousness of continuous drinking, about dangerousness of alcohol withdrawal delirium. The patient verbalized understanding. Should you have any questions, give me a call back. Thank you very much. Martha Bazan MD
== END 2017-07-01 15:50 | disposition home or self-care (01) | DRG 897 ==
LOC: ED 13:22 → ERH 14:52 → 3RNO 19:16
PROVIDERS: ADMIT Internal Medicine; ATTEND Internal Medicine
DX: F10.231 Alcohol dependence with withdrawal delirium (principal); E87.2 Acidosis; D69.59 Other secondary thrombocytopenia; E11.9 Type 2 diabetes mellitus without complications; E86.0 Dehydration; E87.6 Hypokalemia; F19.94 Other psychoactive substance use, unspecified with psychoactive substance-induced mood disorder; F22 Delusional disorders; F41.0 Panic disorder [episodic paroxysmal anxiety]; F41.1 Generalized anxiety disorder; Z53.20 Procedure and treatment not carried out because of patient's decision for unspecified reasons; Z79.899 Other long term (current) drug therapy; Z82.49 Family history of ischemic heart disease and other diseases of the circulatory system; Z83.3 Family history of diabetes mellitus; R41.82 Altered mental status, unspecified